=== PATIENT | male | born 1955 | race Caucasian/White ===

== ENCOUNTER → 2017-03-05 | Outpatient (REF) ==
[~2017-03-05] MED LIST: ATOR1TAB19 PO; BACITAB PO; INSULANT SC; LEVA25SO PO; LISI-538 PO; METF10004 PO; PERC5TAB12 PO; PLAV1TAB2 PO; SENO8.6T10 PO
--- NOTE | 2017-03-06 01:53 | REP ---
Clinical: Bilateral hip pain. Technique: Neutral and frog lateral views of the right and left hip. Findings: Age-related degenerative changes include increased sclerosis to the acetabular roof with subtle marginal spurring and medial joint space narrowing. No periarticular calcifications. No acute fracture dislocation. Vascular calcifications are identified. Impression: Symmetric bilateral mild age-related degenerative changes./ Signed by Joseph Garcia MD 03/06/2017 01:45 A
--- NOTE | 2017-03-06 01:58 | REP ---
Clinical: Lower back pain. Technique: AP, lateral, bilateral oblique and coned-down views of the lumbosacral spine. Findings: Moderate to advanced multilevel degenerative changes noted throughout the visualized lower thoracic and lumbosacral spine. Findings include marginal osteophytes/spurring, endplate sclerosis/irregularity, disc space narrowing and hypertrophic facet changes. Findings are most pronounced at the L5-S1 level where near complete disc space obliteration is noted. No acute fracture / compression injury or subluxation. No obvious spondylolysis. Impression: Moderate to advanced multilevel degenerative changes. No acute fracture / compression injury or subluxation. Signed by Joseph Garcia MD 03/06/2017 01:49 A
== END ==
LOC: M RAD 10:06
PROVIDERS: ATTEND Physician Assistant
DX: M51.36 Other intervertebral disc degeneration, lumbar region (principal); M51.34 Other intervertebral disc degeneration, thoracic region; M51.35 Other intervertebral disc degeneration, thoracolumbar region